=== PATIENT | female | born 1975 | race Caucasian/White ===

== ENCOUNTER 2020-01-18 19:39 | Emergency (ER) | payer OTHER ==
[~2020-01-18] VITALS: Ht 162.6 cm; Wt 56.7 kg
--- NOTE | 2020-01-18 19:50 | NUR ---
BIBS FOR C/O MULTIPLE FACIAL AND UPPER LIP DOG BITE. TDAP NOT UPDATED TO ER BED 5, VITALS STABLE AWAITING MD LAW
[2020-01-18] MEDS ORDERED: LIDOCAINE 1% INJ 50 ML MDV IJ STA (19:54)
[2020-01-18] MEDS ORDERED: TDAP [DIPH/PERTUSSIS/TET] 0.5 ML VIAL IM ONE ×2 (20:00→20:05)
[2020-01-18] MEDS ORDERED: LIDOCAINE /MPF 1% VIAL 5 ML VIAL ONE (20:05)
[2020-01-18 21:44] VITALS: BP 118/82
--- NOTE | 2020-01-18 21:44 | NUR ---
Patient discharged to home in stable condition. Written and verbal after care instructions given. Patient verbalizes understanding of instruction.
== END 2020-01-18 21:45 | disposition home or self-care (01) ==
LOC: ER 19:43
DX: S01.511A Laceration without foreign body of lip, initial encounter (principal); W54.0XXA Bitten by dog, initial encounter; Y93.89 Activity, other specified; Y92.89 Other specified places as the place of occurrence of the external cause; Y99.8 Other external cause status
CPT/HCPCS: 12011; 90471; 90715; 99283; J3490